=== PATIENT | male | born 1955 | race Caucasian/White ===

== ENCOUNTER 2016-09-08 09:33 | Outpatient (CLI) | payer OTHER | END 2016-09-08 09:34 | disposition home or self-care (01) | DX: Z00.00 Encounter for general adult medical examination without abnormal findings (principal) ==

== ENCOUNTER 2017-02-22 11:31 | Outpatient (CLI) | payer OTHER ==
--- NOTE | 2017-02-23 11:31 | XRAY Report ---
EXAM: LEFT FIFTH DIGIT RADIOGRAPHY EXAM DATE: 02/22/2017 11:45 AM. CLINICAL HISTORY: Pain. Proximal interphalangeal joint, post trauma. COMPARISON: None. TECHNIQUE: 3 views. FINDINGS: Bones: No definite acute fracture proximal obstruction. Joints: Normal alignment. Soft Tissues: Moderate soft tissue swelling centered about the proximal interphalangeal joint. IMPRESSION: Focal soft tissue swelling. No fracture or malalignment. [facility] Referring Provider Line: [phone] SITE ID: [id number]
== END 2017-02-22 11:32 | disposition home or self-care (01) ==
LOC: DI.S 11:31
PROVIDERS: ATTEND Physician Assistant
DX: M79.89 Other specified soft tissue disorders (principal)
CPT/HCPCS: 73140

== ENCOUNTER 2017-05-04 08:00 | Day surgery (SDC) | payer OTHER ==
[~2017-05-04 08:00] MED LIST: ceFAZolin 2 GM/50 ML 50 ML IV ONE
[2017-05-04] MEDS ORDERED: LACTATED RINGERS 1,000 ML IV ONE ×2 (08:08→13:10)
--- NOTE | 2017-05-04 12:11 | SURGERY HX AND PHYSICAL(T) ---
Surgical History & Physical - PMH/PSH/Social Hx Does the pt have a hx of MRSA?: No Eyes, Ears, Nose, Throat: Other Cardiovascular: None Respiratory: None Skin: None Endocrine/Autoimmune: None Gastrointestinal: None Urinary: None Musculoskeletal: None Psychiatric: None General: Other Eyes Ears Nose Throat (EENT): Other - Home Meds and Allergies Home Medications: No Known Home Medications [No Known Home Medications] 04/29/17 Allergies/Adverse Reactions: Allergies Allergy/AdvReac Type Severity Reaction Status Date / Time No Known Drug Allergies Allergy Verified 04/29/17 14:05 - Vital Signs Temperature: 36.1 C Respiratory Rate: 16 O2 Saturation: 99 Weight (kg): 75 kg Height: 1.73 m - Patient Review Patient Review: Problems were reviewed with the patient during this visit. Medications were reviewed with the patient during this visit. Allergies were reviewed this patient during this visit. Pertinent Tests Reviewed: All pertitent test for this patient were reviewed. - Assessment & Plan Assessment and Plan: This very pleasant 61-year-old male initially came to my office in August of this year for persistent and recurrent left inguinal pain following a left indirect inguinal herniorrhaphy with mesh implant August 05, [address] Brayan Almanza. Following this he was seen on March 04, 2017 for the exact same reason and a recurrent left inguinal hernia was diagnosed. Because more than 30 days were allowed to elapse between the H&P and the procedure this update H& P is mandated. The patient is evaluated in Room 1 of [facility]. I went over the following data with the patient verbatim and there are not changes. An onlay patch of Prolene mesh with fenestration for the cord was affixed to the floor of the canal after the sac had been high ligated with [id number] 2-0 silk. There is a lump in the left inguinal area and the presentation is similar to the presentation he had prior to his repair in 2008. Straining does make the lump worse. 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 Back when I saw him in August cannot appreciate the hernia and ordered up a CT scan of the area which his insurance denied. We went through the appeal process with no avail. He returns today for a reevaluation and determine to determine the plan. Allergies: None. Current Meds: None. 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, gets laser surgery every 3 months hernia repair 2008 Family History Summary: General Comments - FH: Family History of Alcoholism FH Diabetes-Father FH Hypertension-Mother FH High Cholesterol FH Lung Cancer-father ( at 88 from lung cancer) Risk Factors: Smoked Tobacco Use: Never smoker Passive smoke exposure: yes Drug use: no HIV high-risk behavior: no Caffeine use: 1 drinks per day Alcohol use: yes Drinks per day: 2 Exercise: no Seatbelt use: 100 % Sun Exposure: rarely Family History Risk Factors: Family History of CO in females < 65 years old: no Family History of CO in males < 55 years old: no Review of Systems CONSTITUTIONAL: No weight loss, fever, chills, weakness or fatigue. HEENT: Eyes: No visual loss, blurred vision, double vision or yellow sclerae. Ears, Nose, Throat: No hearing loss, sneezing, congestion, runny nose or sore throat. SKIN: No rash or itching. CARDIOVASCULAR: No chest pain, chest pressure or chest discomfort. No palpitations or edema. RESPIRATORY: No shortness of breath, cough or sputum. GASTROINTESTINAL: No anorexia, nausea, vomiting or diarrhea. No abdominal pain or blood. GENITOURINARY: No dysuria. No impotence. NEUROLOGICAL: No headache, dizziness, syncope, paralysis, ataxia, numbness or tingling in the extremities. No change in bowel or bladder control. MUSCULOSKELETAL: No muscle, back pain, joint pain or stiffness. HEMATOLOGIC: No anemia, bleeding or bruising. LYMPHATICS: No enlarged nodes. No history of splenectomy. PSYCHIATRIC: No history of depression or anxiety. ENDOCRINOLOGIC: No reports of sweating, cold or heat intolerance. No polyuria or polydipsia. ALLERGIES: No history of asthma, hives, eczema or rhinitis. Physical Exam The patient was evalauted in Bed 1 at [facility] General: 61-year old male, appears stated age, well developed, well nourished HEENT: Normocephalic, atraumatic, extraocular movement intact, mucous membranes pink and moist, sclera anicteric and not injected, mckenna hair Neck: Supple without pain on palpation, mass or bruit Cardiac: Regular rate and rhythm without rub, gallop, or murmur Chest: Clear to auscultation bilaterally Abdomen: Soft, nontender, normoactive bowel sounds, no hepatomegaly, no splenomegaly Genitourinary: Clearly seen and felt left inguinal hernia on today's examination , no right inguinal hernia, testes descended, penis normal, surgical site marked. Rectal: Deferred Extremities: No gross neurovascular problem, no clubbing, cyanosis or edema Gait: Not evaluated. Psychiatric: Oriented to person, place and time. Mood and affect appropriate. Assessment and Plan: Left recurrent inguinal herniorrhaphy likely with or without mesh. The indications, procedure, alternatives including not repairing the hernia, and risks including but not limited to infection, bleeding, nerve injury, and were fully explained to the patient and all questions were fully answered. I olga pictures describing what a hernia is and the various ways the hernia can be repaired. I discussed the pros and cons of differing herniorrhaphies. I explained that following the surgery I did not want him lifting anything over 15 pounds for 6 weeks to allow the area to heal optimally and decrease the likelihood that the hernia would recur. Verbal and written consent was obtained. The patient in preparation for his surgery will be nothing by mouth, receive a soap water shower, and receive 2 g of Ancef preoperatively for prophylaxis against surgical infection. I also asked the patient to let me know if there is any way we can make his stay at [facility] more comfortable and he stated that he would let me know. 15 minutes of [id number] time was spent with the patient with over 80% spent in discussion and 30 minutes in the generation of this document due to inefficiencies in the system [employer] disclaimer: This document was created in part using voice recognition technology. Because of the inherent limitations of the system ([employer]'s [employer] Dictate user manual states that the licensee understands that speech recognition is a statistical process and that recognition errors are inherent in the process), occasional same sounding word substitutions and grammatical errors do occur and persist despite proofreading. Please read this document for context.
[2017-05-04] MEDS ORDERED: BUPIVACAINE 0.5% PF 30 ML VIAL INFIL ONE ×2 (12:39)
[2017-05-04] MEDS ORDERED: PROPOFOL 200 MG/20 ML VIAL IVP ONE (13:13)
[2017-05-04] MEDS ORDERED: MIDAZOLAM 2 MG/2 ML VIAL IVP ONE (13:13)
[2017-05-04] MEDS ORDERED: KETOROLAC 30 MG/ML VIAL IVP ONE (13:13)
[2017-05-04] MEDS ORDERED: LIDOCAINE-MPF 2% 5 ML VIAL IM ONE (13:13)
[2017-05-04] MEDS ORDERED: fentaNYL 100 MCG/2 ML VIAL IVP ONE (13:13)
[2017-05-04] MEDS ORDERED: DEXAMETHASONE 4 MG/ML VIAL IVP ONE (13:13)
[2017-05-04] MEDS ORDERED: ONDANSETRON 4 MG/2 ML VIAL IVP ONE (13:13)
--- NOTE | 2017-05-04 14:08 | OPERATIVE REPORT ---
Operative Report - General Planned Procedure: Recurrent left inguinal herniorrhaphy Pre-Op Diagnosis: Recurrent left inguinal hernia Procedure Performed: Recurrent left indirect sliding inguinal herniorrhaphy with mesh and excision cord lipoma Post Op Diagnosis: Same. - Procedure Note Primary Surgeon: Tarik Morris Anesthesia Provider: Abrahan Juarez Anesthesia Technique: General LMA, Local (30 mL 1/2% marcaine) IV Fluids (mL): 1,300 Estimated Blood Loss (mL): 5 Complications: None. - Other Other Information/Narrative: OPERATIVE DESCRIPTION/REPORT: After verbal and written informed consent was obtained detailing the risks of infection, bleeding requiring transfusion with its risks, nerve injury, and , and after I met with the patient confirming the surgery and the site of the surgery and after initialing the site of the surgery with a surgical marker , the patient was brought to the operative suite and placed supine on the operating table. Great care was taken to avoid pressure points to prevent pressure necrosis or nerve injury. Monitoring devices were applied along with TEDs and pneumatic compressive stockings (to prevent DVT). The patient received preoperative antibiotics for surgical prophylaxis. Abrahan Juarez sedated and anethetized the patient for the entire procedure. The patient was prepped and draped in the usual sterile manner. With the patient draped my initials were clearly visible. A "time in" then confirmed that the paitient was identified with 3 identifiers (name, date and medical record number), the history and physical was in the chart, the signed consent confirming the procedure was in the chart, the patient was in the correct position, the aforementioned prophylactic measures were in place or given, we had the correct personnel and equipment to complete the procedure and that anesthesia, surgery and nursing were given an opportunuty to express any concerns. With the agreement of everyone in the room, we proceeded with the operation. A standard inguinal incision tracing the previous incision was made and dissection was carried down to the external oblique aponeurosis using a combination of Metzenbaum scissors and Bovie electrocautery. The external oblique aponeurosis was cleared of overlying adherent tissue, and the external ring was delineated. Extensive scarring was released with Metzenbaum scissors. The external oblique was the incised with a scalpel and this incision was carried out to the external ring using Metzenbaum scissors. Having exposed the inguinal canal, the cord structures were from the canal using blunt dissection, and a [place] drain was placed around the cord structures at the level of the pubic tubercle. This Patito drain was then used to retract the cord structures as needed. There was not much cremasteric muscle but what was there was dissected free from the cord using Bovie electrocautery. The cord was then explored using a combination of sharp and blunt dissection , and the sac was found anteromedially to the cord structures. The sac was dissected free from the cord structures using a combination of blunt dissection and Bovie electrocautery. It was clear that the hernia was a sliding indirect inguinal hernia. Once preperitoneal fat was encountered, the dissection stopped and the sac was placed back into the abdominal cavity and an extra- large Bard Perfix plug inserted into the internal ring. The plug was secured to the internal ring by two interrupted 2-0 PDS sutures. A small cord lipoma was excised using Bovie electrocautery. The fat was not sent to pathology. The Bard Perfix enlay patch was not used as the Prolene mesh that Dr. Almanza had placed was still in place and was protecting against a direct hernia. The Patito drain was removed. The wound was then irrigated using sterile saline, and hemostasis was obtained using Bovie electrocautery. The incision in the external oblique was approximated using a 3-0 Vicryl in a running fashion , thus reforming the external ring. The fascia and skin was then injected with the 1/2% marcaine for senior care pain control. The skin incision was approximated with 4-0 Monocryl in a subcuticular fashion. The skin was prepped with benzoin and steristrips were applied. At this point a time out was performed that confirmed that all the counts were correct, the procedure that was performed, the blood loss, the IV fluids administered, and the patients condition. A dressing was then applied. Gentle downward traction ensured that the testes were well seated in the scrotum. Having tolerated the procedure well , the patient was taken to short stay in good and stable condition.
[2017-05-04] MEDS ORDERED: HYDROcod/ACETAM 10 MG/325 MG TABLET ONE (14:17)
[2017-05-04 14:48] VITALS: BP 124/69
== END 2017-05-04 08:01 | disposition home or self-care (01) ==
LOC: SDS 08:00
PROVIDERS: ATTEND Surgery
PROC: 0YU60JZ Supplement Left Inguinal Region with Synthetic Substitute, Open Approach (ICD-10-PCS; principal; 2017-05-04 09:30)
DX: K40.91 Unilateral inguinal hernia, without obstruction or gangrene, recurrent (principal); D17.6 Benign lipomatous neoplasm of spermatic cord
CPT/HCPCS: 49520; A9270; C1781; J0690; J7120